=== PATIENT | male | born 1975 | race Caucasian/White ===

== ENCOUNTER 2016-09-12 13:05 | Emergency (ER) | payer OTHER ==
[2016-09-12 13:32] VITALS: BP 130/91
--- NOTE | 2016-09-12 13:46 | UC ---
Respiratory Complaint HPI - HPI Summary HPI Summary: C/O CHEST TIGHTNESS AND PRESSURE PAST 2 DAYS ASSOCIATED WITH SOME SOB AND FATIGUE. NO NAUSEA, NO SWEATS. HE HAS HAD A COUGH WITH SOME PHLEGM WELL. NO FEVER. PAIN SEEMS TO GET WORSE WITH MOVEMENT. PT IS A VERY POOR HISTORIAN. 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 Negative: Fever, Chills , Pleuritic Chest Pain, Wheezing, Hemoptysis, Dizziness, Calf Pain, Calf Swelling, Edema, Nasal Congestion, Hoarseness, Sinus Discomfort - Allergies/Home Medications Allergies/Adverse Reactions: Allergies Allergy/AdvReac Type Severity Reaction Status Date / Time ALLERGY SHOTS Allergy Intermediate Rash And Uncoded 05/05/14 11:54 Itching Home Medications: Home Medications Hydrocodone-Acetaminophen [Vicodin 5-300 mg] 5 mg PO TID 09/12/16 [History Confirmed 09/12/16] PMH/Surg Hx/FS Hx/Imm Hx Endocrine History Of: Reports: Diabetes - PRE-DIABETES, Dyslipidemia Cardiovascular History Of: Reports: Hypertension Denies: Cardiac Disorders, Pacemaker/ICD, Congestive Heart Failure Respiratory History Of: Denies: Asthma GI/ History Of: Denies: Gastroesophageal Reflux, Ulcer, Renal Disease Neurological History Of: Denies: TIA, CVA Psychological History Of: Reports: Anxiety, Depression Denies: Schizophrenia, Post Traumatic Stress Disorder Cancer History Of: Denies: Lung Cancer, Colorectal Cancer, Breast Cancer, Prostate Cancer, Cervical Cancer Other History Of: Negative For: HIV - Surgical History Surgical History: None - Family History Known Family History: Positive: Cardiac Disease, Hypertension, Diabetes - Social History Alcohol Use: Occasionally Substance Use Type: None Smoking Status (MU): Heavy Every Day Tobacco Smoker Type: Cigarettes Amount Used/How Often: 1/2 PPD Household Exposure Type: Cigarettes Review of Systems Constitutional: Fatigue ENT: Negative Respiratory: Shortness Of Breath, Cough Cardiovascular: Chest Pain Gastrointestinal: Negative All Other Systems Reviewed And Are Negative: Yes Physical Exam Triage Information Reviewed: Yes Appearance: Well-Appearing, No Pain Distress, Well-Nourished Vital Signs: Initial Vital Signs Temp 98.8 F 09/12/16 13:27 Pulse 93 09/12/16 13:27 Resp 20 09/12/16 13:27 BP 130/91 09/12/16 13:27 Pulse Ox 95 09/12/16 13:27 Vital Signs Reviewed: Yes Eyes: Positive: Conjunctiva Clear ENT: Positive: Hearing grossly normal, Pharynx normal, TMs normal Neck: Positive: Supple, Nontender, No Lymphadenopathy Respiratory Exam: Normal Cardiovascular Exam: Normal Abdomen Description: Positive: Soft Musculoskeletal: Positive: No Edema Neurological: Positive: Alert Psychological: Positive: Normal Response To Family, Age Appropriate Behavior Skin: Negative: rashes UC Diagnostic Evaluation - Laboratory O2 Sat by Pulse Oximetry: 95 - EKG Cardiac Rate: NL - 91 BPM Cardiac Rhythm: Sinus: Normal Ectopy: None ST Segment: Normal Respiratory Course/Dx - Course Course Of Treatment: LONG DISCUSSION WITH PT ABOUT CONCERN FOR CARDIAC ETIOLOGY GIVEN DESCRIPTION OF SYMPTOMS. PT DECLINES TRANSFER TO ER. STATES HE DOES NOT THINK IT IS HIS HEART. ADVISED TO GO TO ER WITHOUT FAIL IF SX WORSEN. - Differential Dx/Diagnosis Provider Diagnoses: BRONCHOSPASM Discharge - Discharge Plan Condition: Stable Disposition: HOME Prescriptions: Albuterol HFA INHALER* [Ventolin HFA Inhaler*] 2 puff INH Q4H PRN #1 mdi PRN Reason: Shortness Of Breath predniSONE TAB* [Deltasone TAB*] 50 mg PO DAILY #5 tab Patient Education Materials: Bronchospasm (ED) Forms: *Work Release Referrals: Brendan Ramirez MD [Primary Care Provider] - If Needed Additional Instructions: DISCUSSED CONCERN FOR POSSIBLE CARDIAC ETIOLOGY GIVEN YOUR DESCRIPTION OF YOUR SYMPTOMS. YOU CURRENTLY DO NOT FEEL THAT IT IS HEART RELATED AND DO NOT WANT TO GO TO THE ER WHICH IS UNDERSTANDABLE. WILL PRESCRIBE PREDNISONE AND ALBUTEROL TO TREAT FOR SYMPTOMS CONSISTENT WITH BRONCHOSPASM. NO INDICATION FOR ANTIBIOTICS AT PRESENT. LIKELY A VIRAL ILLNESS THAT SHOULD RECOVER WITH TIME. IT MAY TAKE SEVERAL WEEKS. GO TO ER WITHOUT FAIL IF YOU DEVELOP WORSENING CHEST PAIN, SHORTNESS OF BREATH, NAUSEA, SWEATS OR ANY OTHER CONCERNING SYMPTOMS.
== END 2016-09-12 14:10 | disposition home or self-care (01) ==
LOC: UCEAST 13:05
DX: J98.01 Acute bronchospasm (principal); R73.03 Prediabetes; F41.9 Anxiety disorder, unspecified; I10 Essential (primary) hypertension; E78.5 Hyperlipidemia, unspecified; F33.8 Other recurrent depressive disorders; F17.210 Nicotine dependence, cigarettes, uncomplicated
CPT/HCPCS: 93005; 99212; G0463

== ENCOUNTER 2017-04-07 15:47 | Emergency (ER) | payer OTHER ==
[2017-04-07 16:21] VITALS: BP 130/84
--- NOTE | 2017-04-07 16:28 | UC ---
Mino Feliciano Nikita, scribed for Kari Mercedes MD on 04/07/17 at 1619 . Skin Complaint HPI - HPI Summary HPI Summary: This patient is a 41 year old M presenting to [facility] with a chief complaint of a tick bite on 04/06/17 at 0200 in the morning. Pt pulled out what seemed like a tick with his fingers then pulled out the head of the tick with a knife. The pt does not know how long the tick has been there. The CC is described as on the lower L abdomen. The patient rates the pain 4/10 in severity. Symptoms aggravated by nothing. Symptoms alleviated by nothing. Patient reports erythema and irritation at site of the bite, cold-like symptoms (for past 2-3 days; nasal congestion, cough, diffuse aching, and sore joints), and CESAR (possibly secondary to drinking last night). Patient denies fever. - History of Current Complaint Chief Complaint: UCSkin Time Seen by Provider: 04/07/17 15:59 Stated Complaint: COLD Hx Obtained From: Patient Onset/Duration: Sudden Onset, Lasting Days, Still Present Skin Exposure Onset/Duration: Days Ago Timing: Constant Onset Severity: Mild Current Severity: Mild Pain Intensity: 4 Pain Scale Used: 0-10 Numeric Location: Discrete - lower L abdomen Character: Redness - and irritation, Painful Aggravating Factor(s): Nothing Alleviating Factor(s): Nothing Associated Signs & Symptoms: Positive: Cough - Patient reports erythema and irritation at site of the bite, cold-like symptoms (for past 2-3 days; nasal congestion, cough, diffuse aching, and sore joints), and CESAR (possibly secondary to drinking last night). Patient denies fever. - Allergy/Home Medications Allergies/Adverse Reactions: Allergies Allergy/AdvReac Type Severity Reaction Status Date / Time ALLERGY SHOTS Allergy Intermediate Rash And Uncoded 04/07/17 16:02 Itching Review of Systems Constitutional: Other - denies fever Skin: Other - erythema and irritation at site of the tick bite Eyes: Negative ENT: Other - nasal congestion Respiratory: Cough Cardiovascular: Negative Gastrointestinal: Negative Genitourinary: Negative Motor: Negative Neurovascular: Negative Musculoskeletal: Other: - diffuse and aching joints; knees are particularly painful due to meniscal damange. Neurological: Headache - possible secondary to drinking last night Psychological: Negative All Other Systems Reviewed And Are Negative: Yes PMH/Surg Hx/FS Hx/Imm Hx Endocrine History: Other Other Endocrine History: No DM Cardiovascular History: Other Other Cardiovascular History: No CAD Respiratory History: Other Other Respiratory History: No asthma Other History Of: Negative For: HIV - Surgical History Surgical History: None - Family History Known Family History: Positive: Cardiac Disease, Hypertension, Diabetes - Social History Occupation: Employed Full-time - culinary chef at [employer] Alcohol Use: Occasionally Substance Use Type: None Smoking Status (MU): Heavy Every Day Tobacco Smoker Type: Cigarettes Amount Used/How Often: 1/2 PPD Household Exposure Type: Cigarettes Physical Exam Triage Information Reviewed: Yes Appearance: No Pain Distress, Obese Vital Signs: Initial Vital Signs Temp 98.6 F 04/07/17 15:58 Pulse 96 04/07/17 15:58 Resp 15 04/07/17 15:58 BP 140/115 04/07/17 15:58 Pulse Ox 100 04/07/17 15:58 Vital Signs Reviewed: Yes ENT: Positive: Pharynx normal, TM dull - serous fluid Neck: Positive: Supple, Nontender, No Lymphadenopathy Respiratory: Positive: Lungs clear, Normal breath sounds Cardiovascular: Positive: RRR, No Murmur Neurological Exam: Other - A little drowsy, slow to respond to questions. Skin Exam: Other - left lower abdomen with 8 mm area of erythema surrounding bite, consistent with tick bite. No induration. Course/Dx - Course Course Of Treatment: Pt medications reviewed this visit. Pt advised to quit smoking and to follow up on blood pressure elevation. Doxycycline for prevention of Lyme disease given - Differential Diagnoses - Skin Complaint Differential Diagnoses: Cellulitis, Systemic Illness, Tick Born Illness - Diagnoses Provider Diagnoses: tick bite. Discharge - Discharge Plan Condition: Stable Disposition: HOME Prescriptions: Doxycycline (Monohydrate) [Doxycycline Monohydrate] 2 cap PO ONCE #2 cap Patient Education Materials: Tick Bite (ED) Referrals: Brendan Ramirez MD [Primary Care Provider] - Additional Instructions: You have been prescribed a single dose of doxycycline to prevent the risk of Lyme disease secondary to your tick bite. This is about 80% effective in decreasing the risk of Lyme disease should the tick have been infected with the bacteria. You can take the capsules with a snack, but NO DAIRY products. Monitor for symptoms of Lyme disease. Your blood pressure is high normal today and should be rechecked, but it has decreased from the first check in [facility] care. The documentation as recorded by the Mino sauceda Nikita accurately reflects the service I personally performed and the decisions made by me, Kari Mercedes MD.
== END 2017-04-07 16:30 | disposition home or self-care (01) ==
LOC: UCEAST 15:47
DX: S30.861A Insect bite (nonvenomous) of abdominal wall, initial encounter (principal); W57.XXXA Bitten or stung by nonvenomous insect and other nonvenomous arthropods, initial encounter; Y93.9 Activity, unspecified; Y92.9 Unspecified place or not applicable; Y99.9 Unspecified external cause status
CPT/HCPCS: 99212; G0463